=== PATIENT | male | born 1970 ===

== ENCOUNTER 2018-01-03 16:49 | Emergency (ER) | payer OTHER ==
[2018-01-03 16:50] VITALS: BMI 33.3
[2018-01-03 17:13] VITALS: TEMP 97.9
[2018-01-03] MEDS ORDERED: Sodium Chloride 0.9% 1,000 ML IV STA (17:25)
--- NOTE | 2018-01-03 17:26 | ED PDOC ---
"Arrival/HPI - General Chief Complaint: GI Problem Time Seen by Provider: 01/03/18 17:22 Historian: Patient - History of Present Illness Narrative History of Present Illness (Text): 01/03/18 17:22 47 y/o male, no significant pmh, nkda, c/o nausea/vomiting/diarrhea on and off x 2-3 days with no recent traveling. Pt. stated that he has been having lt. sided abdominal pain with nausea/vomiting/diarrhea started about 2-3 days ago, no recent traveling, no night sweat, no flank pain, no RUQ pain, no palpitation , no other medical or psychological complaints. Past Medical History - Provider Review Nursing Documentation Reviewed: Yes - Cardiac Hx Cardiac Disorders: Yes Hx Hypertension: Yes - Pulmonary Hx Respiratory Disorders: No - Neurological Hx Neurological Disorder: Yes HX Cerebrovascular Accident: Yes - HEENT Hx HEENT Disorder: No - Renal Hx Renal Disorder: No - Endocrine/Metabolic Hx Endocrine Disorders: No - Hematological/Oncological Hx Blood Disorders: No - Integumentary Hx Dermatological Disorder: No - Musculoskeletal/Rheumatological Hx Musculoskeletal Disorders: No - Gastrointestinal Hx Gastrointestinal Disorders: Yes Hx Diverticulitis: Yes - Genitourinary/Gynecological Hx Genitourinary Disorders: No - Psychiatric Hx Psychophysiologic Disorder: No Hx Substance Use: No - Surgical History Other/Comment: hernia repair - Anesthesia Hx Anesthesia: Yes Hx Anesthesia Reactions: No Hx Malignant Hyperthermia: No Family/Social History - Physician Review Nursing Documentation Reviewed: Yes Family/Social History: Unknown Family HX Smoking Status: Former Smoker Hx Alcohol Use: No Hx Substance Use: No Allergies/Home Meds Allergies/Adverse Reactions: Allergies No Known Allergies Allergy (Verified 01/03/18 17:07) Review of Systems - Review of Systems Constitutional: absent: Fatigue, Fevers Eyes: absent: Vision Changes ENT: absent: Hearing Changes Respiratory: absent: SOB, Cough Cardiovascular: absent: Chest Pain Gastrointestinal: Abdominal Pain, Diarrhea, Nausea, Vomiting Skin: absent: Rash, Pruritis Neurological: absent: Headache, Dizziness Psychiatric: absent: Anxiety, Depression Physical Exam Vital Signs Reviewed: Yes Vital Signs Temp Pulse Resp BP Pulse Ox 01/03/18 17:08 97.9 F 77 19 142/92 H 96 Temperature: Afebrile Blood Pressure: Hypertensive Pulse: Regular Respiratory Rate: Normal Appearance: Positive for: Well-Appearing, Non-Toxic, Comfortable Pain Distress: Mild Mental Status: Positive for: Alert and Oriented X 3 - Systems Exam Head: Present: Atraumatic, Normocephalic Pupils: Present: PERRL Extroacular Muscles: Present: EOMI Conjunctiva: Present: Normal Mouth: Present: Moist Mucous Membranes Neck: Present: Normal Range of Motion Respiratory/Chest: Present: Clear to Auscultation, Good Air Exchange. No: Respiratory Distress, Accessory Muscle Use Cardiovascular: Present: Regular Rate and Rhythm, Normal S1, S2. No: Murmurs Abdomen: Present: Tenderness (+epigastric and Lt. sided abdominal tenderness. ) . No: Distention, Peritoneal Signs Back: Present: Normal Inspection. No: CVA Tenderness, Midline Tenderness Upper Extremity: Present: Normal Inspection. No: Cyanosis, Edema Lower Extremity: Present: Normal Inspection. No: Edema Neurological: Present: GCS=15, Speech Normal, Motor Func Grossly Intact, Gait Normal, Memory Normal Skin: Present: Warm, Dry, Normal Color. No: Rashes Psychiatric: Present: Alert, Oriented x 3, Normal Insight, Normal Concentration Medical Decision Making ED Course and Treatment: 01/03/18 17:27 -labs/ua/lipase -CT abdomen and pelvis -IVF/pepcid/zofran -Observe and reassess 01/03/18 20:00 -Labs are non-significant -UA show no UTI -CT abdomen and pelvis: 1. Severe atrophy right kidney. 2. A few diverticula of the colon are noted most prominent sigmoid region without definite signs of diverticulitis. There is liquid stool and air fluid levels in the colon and patient with reported history of diarrhea. No abscess or signs of obstruction is seen. -Pt. feels much better with pain medication given. Stable to be discharged home. -Discharge home with pepcid, zofran, bed rest, BRAT diet, avoid dairy product for 5 days, follow up with your own pmd and GI within 2 days, return to the ER for any new or worsening signs or symptoms. - Lab Interpretations Lab Results: 01/03/18 17:38 01/03/18 17:38 Lab Results 01/03/18 17:38: WBC 7.7, RBC 5.11, Hgb 15.1, Hct 44.1, MCV 86.3, MCH 29.5, MCHC 34.2, RDW 13.3, Plt Count 277, MPV 10.8, Gran % 55.2, Lymph % (Auto) 30.5, [place] % (Auto) 12.1 H, Eos % (Auto) 1.6, Baso % (Auto) 0.6, Gran # 4.25, Lymph # (Auto ) 2.4, [place] # (Auto) 0.9 H, Eos # (Auto) 0.1, Baso # (Auto) 0.05 01/03/18 17:38: Sodium 144, Potassium 4.3, Chloride 105, Carbon Dioxide 26, Anion Gap 18, BUN 14, Creatinine 0.9, Est GFR ( Amer) > 60, Est GFR (Non- Af Amer) > 60, Random Glucose 83, Calcium 10.1, Magnesium 2.2, Total Bilirubin 0.3, AST 45, ALT 58 H, Alkaline Phosphatase 105, Total Protein 8.0, Albumin 4.6 , Globulin 3.4, Albumin/Globulin Ratio 1.3, Lipase 83 01/03/18 17:36: Urine Color Yellow, Urine Appearance Clear, Urine pH 5.5, Ur Specific [place] >= 1.030, Urine Protein Negative, Urine Glucose (UA) Negative, Urine Ketones Negative, Urine Blood Negative, Urine Nitrate Negative, Urine Bilirubin Negative, Urine Urobilinogen 0.2, Ur Leukocyte Esterase Negative I have reviewed the lab results: Yes - RAD Interpretation Radiology Orders: 01/03/18 17:25 ABD & PELVIS IV CONTRAST ONLY [CT] Stat Lung bases: Atelectasis or fibrosis in the bases. ABDOMEN: Liver: Unremarkable. No mass. Gallbladder and bile ducts: Unremarkable. No calcified stones. No ductal dilation. Pancreas: Unremarkable. No mass. No ductal dilation. Spleen: Unremarkable. No splenomegaly. Adrenals: Unremarkable. No mass. SHERIF GOMEZ | Preliminary Radiology Report SOCIAL RESEARCH ASSISTANT (QA) DISCREPANCY? If there is a discrepancy between the preliminary and final interpretation, please notify [facility] via [email or web address]. If you do not have access to our QA portal, call our QA team at [phone] CONFIDENTIALITY STATEMENT This report is intended only for the use of the referring physician, and only in accordance with law, If you received this in error, call [phone] Page 2 of 2 Kidneys and ureters: Severe atrophy right kidney. Small nonobstructing stone in the left kidney. No hydronephrosis Stomach and bowel: A few diverticula of the colon are noted most prominent sigmoid region without definite signs of diverticulitis. There is liquid stool and air fluid levels in the colon and patient with reported history of diarrhea. No abscess or signs of obstruction is seen. Appendix: No findings to suggest acute appendicitis. PELVIS: Bladder: Unremarkable. No mass. Reproductive: Unremarkable as visualized. ABDOMEN and PELVIS: Intraperitoneal space: Unremarkable. No free air. No significant fluid collection. Bones/joints: Degenerative change of the spine. No acute fracture. No dislocation. Soft tissues: Unremarkable. Vasculature: Unremarkable. No abdominal aortic aneurysm. Lymph nodes: Unremarkable. No enlarged lymph nodes. IMPRESSION: 1. Severe atrophy right kidney. 2. A few diverticula of the colon are noted most prominent sigmoid region without definite signs of diverticulitis. 3. There is liquid stool and air fluid levels in the colon and patient with reported history of diarrhea. No abscess or signs of obstruction is seen. Thank you for allowing us to participate in the care of your patient. Dictated and Authenticated by: Umer Knapp MD 01/03/2018 7:48 PM Eastern Time ([place] & [place]) Humidifier Attendant: Radiologist - Medication Orders Current Medication Orders: Discontinued Medications Famotidine (Pepcid) 20 mg IVP STAT STA Stop: 01/03/18 17:26 Last Admin: 01/03/18 17:51 Dose: 20 mg IVP Administration Document 01/03/18 17:51 GMD (Rec: 01/03/18 17:51 GMD [id number]) Charges for Administration # of IVP Administrations 1 Sodium Chloride (Sodium Chloride 0.9%) 1,000 mls @ 999 mls/hr IV .Q1H1M STA Stop: 01/03/18 18:25 Last Admin: 01/03/18 17:51 Dose: 999 mls/hr eMAR Start Stop Document 01/03/18 17:51 GMD (Rec: 01/03/18 17:51 GMD [id number]) Intravenous Solution Start Date 01/03/18 Start Time 17:51 End Date 01/03/18 End time 18:51 Total Infusion Time 60 Ondansetron HCl (Zofran Inj) 4 mg IVP STAT STA Stop: 01/03/18 17:26 Last Admin: 01/03/18 17:51 Dose: 4 mg IVP Administration Document 01/03/18 17:51 GMD (Rec: 01/03/18 17:51 GMD [id number]) Charges for Administration # of IVP Administrations 1 - PA / TANK WASHER / Resident Statement MD/DO has reviewed & agrees with the documentation as recorded. Disposition/Present on Arrival - Present on Arrival Any Indicators Present on Arrival: No History of DVT/PE: No History of Uncontrolled Diabetes: No Urinary Catheter: No History of Decub. Ulcer: No History Surgical Site Infection Following: None - Disposition Have Diagnosis and Disposition been Completed?: Yes Diagnosis: Diarrhea, Nausea and vomiting, Colonic diverticulum Disposition: HOME/ ROUTINE Disposition Time: 17:27 Patient Plan: Discharge Condition: IMPROVED Discharge Instructions (ExitCare): Diverticulosis (DC) Print Language: SERBIAN Additional Instructions: -Discharge home with pepcid, zofran, bed rest, BRAT diet, avoid dairy product for 5 days, follow up with your own pmd and GI within 2 days, return to the ER for any new or worsening signs or symptoms. Prescriptions: Famotidine [Pepcid] 20 mg PO BID #30 tab Ondansetron [Zofran] 4 mg PO Q8H PRN #10 tab PRN Reason: Nausea/Vomiting Referrals: Sherif Reza Jr., MD [Primary Care Provider] - Follow up with primary Bam Holcomb MD [Staff Provider] - Follow up with primary Forms: WORK NOTE"
[2018-01-03 17:48] LABS: PH,URINE 5.5 (4.7-8.0); URINE APPEARANCE CLEAR (CLEAR); URINE BILIRUBIN NEGATIVE (NEGATIVE); URINE BLOOD NEGATIVE (NEGATIVE); URINE COLOR YELLOW (YELLOW); URINE GLUCOSE (UA) NEGATIVE (NEGATIVE); URINE LEUKOCYTE ESTERASE NEGATIVE Leu/uL (NEGATIVE); URINE PROTEIN NEGATIVE mg/dL (<30 mg/dL); URINE UROBILINOGEN 0.2 E.U./dL (<1 E.U./dL)
[2018-01-03 18:01] LABS: BASO # 0.05 K/mm3 (0.0-2.0); BASO % 0.6 % (0.0-3.0); EOS # 0.1 (0.0-0.7); EOS % 1.6 % (1.5-5.0); GRAN # 4.25 (1.4-6.5); GRAN % 55.2 % (50.0-68.0); HEMOGLOBIN 15.1 g/dL (14.0-18.0); LYMPH # 2.4 (1.2-3.4); LYMPH % 30.5 % (22.0-35.0); MEAN CELL VOLUME 86.3 fl (80.0-105.0); MEAN CORPUSCULAR HEMOGLOBIN 29.5 pg (25.0-35.0); MEAN CORPUSCULAR HGB CONC 34.2 g/dl (31.0-37.0); MEAN PLATELET VOLUME 10.8 fl (7.0-11.0); MONO # 0.9 (0.1-0.6); MONO % 12.1 % (1.0-6.0); RBC 5.11 10^6/uL (3.5-6.1); RED CELL DISTRIBUTION WIDTH 13.3 % (11.5-14.5); WHITE BLOOD COUNT 7.7 10^3/ul (4.5-11.0)
[2018-01-03 18:10] LABS: ALB/GLOB RATIO 1.3 (1.1-1.8); ALBUMIN 4.6 g/dL (3.0-4.8); ALT/SGPT 58 U/L (7-56); AST/SGOT 45 U/L (17-59); BLOOD UREA NITROGEN 14 mg/dL (7-21); CALCIUM 10.1 mg/dL (8.4-10.5); GFR AFRICAN-AMERICAN > 60; GFR NON-AFRICAN AMERICAN > 60; LIPASE 83 U/L (23-300)
[2018-01-03] MEDS ORDERED: Iohexol 350 MG/100 ML VIAL ONE (18:59)
[2018-01-03 20:15] VITALS: BP 122/73; PULSE 54; RESP 18; O2SAT 98
--- NOTE | 2018-01-04 09:46 | CT ---
PROCEDURE: CT abdomen pelvis 01/03/2018 HISTORY: LLQ abdominal pain, diarrhea COMPARISON: Comparison made with prior study 03/09/2016. TECHNIQUE: Contiguous helical/ transaxial images of the abdomen and pelvis obtained following intravenous injection of approximately 100 cc Omnipaque 350. Additional 2 dimensional sagittal and coronal reformats reformats generated. Radiation dose: Total exam DLP = This CT exam was performed using one or more of the following dose reduction techniques: Automated exposure control, adjustment of the mA and/or kV according to patient size, and/or use of iterative reconstruction technique FINDINGS: LOWER THORAX: Unremarkable. LIVER: Unremarkable. No gross lesion or ductal dilatation. GALLBLADDER AND BILE DUCTS: Gallbladder is incompletely distended which in part accounts for thick-walled appearance ; findings likely due to nonfasting state. No definitive intraluminal gallbladder calculi PANCREAS: To pancreas is slightly atrophic and fatty replaced. No obvious pancreatic masses collections or calcifications. No significant pancreatic ductal dilatation. SPLEEN: Unremarkable. No splenomegaly. ADRENALS: The no adrenal lesions. KIDNEYS AND URETERS: Significant not atrophic changes of the right kidney again noted. Mild compensatory hypertrophy of the left kidney. No evidence of nephrolithiasis or hydronephrosis. BLADDER: The the urinary bladder is incompletely distended which in part accounts for thick-walled appearance. Muscular hypertrophy may contribute. Correlation with urinalysis recommended to exclude cystitis which would be less likely in a male patient though not completely excluded. No intraluminal Urinary bladder calculi REPRODUCTIVE: Prostate measures approximately 3.7 cm in transverse dimension. APPENDIX: Normal-appearing appendix best seen on axial image number [id number]. BOWEL: The evaluation of the bowel is limited due to the lack of oral contrast material. Stomach is incompletely distended with food debris liquid and air. Visualized loops of small bowel exhibit normal contour and caliber. No evidence of acute mechanical small bowel obstruction. Liquid stool seen throughout most of the colon consistent with this patient's history of diarrheal illness. There are scattered colonic diverticula the bulk of which arise from the distal descending and the sigmoid colon. No radiographic evidence of acute diverticulitis. . No definitive evidence of mural wall thickening. PERITONEUM: Unremarkable. No fluid collection. No free air. LYMPH NODES: Unremarkable. No enlarged lymph nodes. VASCULATURE: No evidence of abdominal or iliac artery aneurysm. BONES: Mild multilevel degenerative spondylosis of the lower thoracic and lumbar spine. There are no acute compression fractures no retropulsed fragments. OTHER FINDINGS: None. . IMPRESSION: Colonic diverticulosis without radiographic evidence of acute diverticulitis. . Liquid stool throughout most of the colon suggestive of a diarrheal illness and compatible with this patient's history of same. . Significant atrophic changes right kidney with hyper compensatory hypertrophy left kidney.
== END 2018-01-03 20:35 | disposition home or self-care (01) ==
LOC: ED 16:49
DX: K57.30 Diverticulosis of large intestine without perforation or abscess without bleeding (principal); R11.2 Nausea with vomiting, unspecified; R19.7 Diarrhea, unspecified
CPT/HCPCS: 74177; 80053; 81003; 83690; 83735; 85025; 96361; 96374; 96375; 99284; J2405; J7040; Q9967